=== PATIENT | male | born 1970 | race African-American/Black ===

== ENCOUNTER 2019-03-29 22:34 | Emergency (ER) | payer MEDICAID ==
[~2019-03-29] VITALS: Ht 185.4 cm; Wt 129.3 kg
[2019-03-29] MEDS ORDERED: NKM (22:45)
--- NOTE | 2019-03-29 22:46 | NUR ---
ED Nurse Note: Pt ambulated to ED from home c/o / L sided flank pain since 1699 today, denies SOB or chest pain. Pt is A&Ox4. VSS
[2019-03-29 22:50] VITALS: BP 136/85
[2019-03-29] MEDS ORDERED: Methocarbamol 750mg tab ORAL ONE (23:15)
[2019-03-29] MEDS ORDERED: IBUPROFEN600 MG ORAL (23:43)
[2019-03-29] MEDS ORDERED: LIDODERM700 M1 TOPIC (23:43)
[2019-03-29] MEDS ORDERED: ROBAXIN-750750 MG PO (23:43)
[2019-03-29 23:45] VITALS: BP 136/85
--- NOTE | 2019-03-29 23:45 | NUR ---
ER DISCHARGE NOTE: Patient is cleared to be discharged per ERMD, pt is aox4, on room air, with stable vital signs. pt was given dc and prescription instructions, pt was able to verbalize understanding, pt id band removed. pt is able to ambulate with steady gait. pt took all belongings.
--- NOTE | 2019-03-30 00:42 | Emergency Room Report ---
History of Present Illness General Chief Complaint: Back Pain-No Injury Source: Patient Present Illness HPI 48-year-old male presents ED for evaluation. Patient complaining of left lower back pain which started this morning. Woke up with the pain. Pain is throbbing , 7 out of 10, nonradiating. Denies nausea or vomiting. Denies dysuria or hematuria. Denies bowel or bladder incontinence. Denies any leg or motor weakness. No other aggravating relieving factors. Denies any other associated symptoms Allergies: Coded Allergies: No Known Allergies (Unverified , 03/29/19) Patient History Past Medical History: HTN Past Surgical History: none Pertinent Family History: none Social History: Denies: smoking, alcohol use, drug use Immunizations: UTD Reviewed Nursing Documentation: PMH: Agreed; PSxH: Agreed Nursing Documentation-PMH Past Medical History: No History, Except For Hx Hypertension: Yes Review of Systems All Other Systems: negative except mentioned in HPI Physical Exam Vital Signs Date Time Temp Pulse Resp B/P (MAP) Pulse Ox O2 Delivery O2 Flow Rate FiO2 03/29/19 22:41 98.2 84 14 136/85 (102) 96 Room Air Sp02 EP Interpretation: reviewed, normal General Appearance: no apparent distress, alert, GCS 15, non-toxic, obese Head: normocephalic Eyes: bilateral eye normal inspection, bilateral eye PERRL ENT: normal ENT inspection Neck: normal inspection Respiratory: normal inspection Cardiovascular #1: normal inspection, normal peripheral pulses Gastrointestinal: normal bowel sounds, non tender, soft, non-distended, no guarding, no rebound Rectal: deferred Genitourinary: no CVA tenderness Musculoskeletal: tender - paraspinal lumbar tenderness Neurologic: alert, oriented x3, responsive, motor strength/tone normal, sensory intact, speech normal Psychiatric: normal inspection Skin: normal color Lymphatic: normal inspection Medical Decision Making Diagnostic Impression: Primary Impression: Back pain Qualified Codes: M54.5 - Low back pain ER Course Hospital Course 48-year-old male presents ED complaining of lower back pain. No evidence of trauma Differential diagnoses include: pyelonephritis, kidney stone, muscle strain, Lspine fracture Clinical course Patient placed on stretcher. After initial history physical exam reveals obese male in no acute distress. There is no flank pain. There is no vertebral body tenderness. There is paraspinal lumbar tenderness on the lower back. Pain is muscular. Discussed findings with patient. No imaging indicated at this time. Patient agrees with plan. Given pain meds here. Will discharge with medication. Safe for discharge for close outpatient follow-up. States he has a PMD Diagnosis - back pain Stable and discharged to home with prescription for motrin, robaxin, lidoderm. Followup with PMD. Return to ED if symptoms recur or worsen Last Vital Signs Date Time Temp Pulse Resp B/P (MAP) Pulse Ox O2 Delivery O2 Flow Rate FiO2 03/29/19 23:46 98.2 03/29/19 23:45 85 14 136/85 96 Room Air Status: improved Disposition: HOME, SELF-CARE Condition: Stable Scripts Lidocaine (Lidoderm) 1 Each Adh..patch 1 PATCH TOPIC DAILY, #7 PATCH 0 Refills Patch(es) may remain in place for up to 12 hours in any 24-hour period. Prov: Kt Baron MD 03/29/19 Methocarbamol* (ROBAXIN-750*) 750 Mg Tablet 750 MG PO TID, #21 TAB 0 Refills Prov: Kt Baron MD 03/29/19 Ibuprofen* (MOTRIN*) 600 Mg Tablet 600 MG ORAL Q8H PRN for For Pain, #30 TAB 0 Refills Prov: Kt Baron MD 03/29/19 Referrals: [facility]ERR[facility] (PCP) Patient Instructions: Back Pain, Adult Kt Baron MD Mar 30, 2019 00:42
== END 2019-03-29 23:45 | disposition home or self-care (01) ==
LOC: EMR 22:58
DX: M54.5 Low back pain (principal); I10 Essential (primary) hypertension; E66.9 Obesity, unspecified; Z68.37 Body mass index [BMI] 37.0-37.9, adult
CPT/HCPCS: 99283

== ENCOUNTER 2019-11-08 13:50 | Emergency (ER) | payer MEDICAID ==
[~2019-11-08] VITALS: Ht 185.4 cm; Wt 129.3 kg
[~2019-11-08 13:50] MED LIST: AMLODIPINE BESY10 MG ORAL; IBUPROFEN600 MG ORAL; LIDODERM700 M1 TOPIC; METFORMIN HCL500 M1 ORAL; NAPROXEN250 M1 PO; NKM; ROBAXIN-750750 MG PO; TRIAMTERENE-HC1 EAC5 ORAL
--- NOTE | 2019-11-08 14:00 | NUR ---
ED Nurse Note: patient walked into ED from work c/o left sided chest pain 03/24, 1 hour prior to arrival to Ed. patient changed to a hospital gown. 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 patient reports the pain is aggravated by moving. patient is alert awake x4 ambulatory, breathing unlabored and even, speaking in full sentences.
[2019-11-08 14:18] VITALS: BP 127/79
--- NOTE | 2019-11-08 14:22 | NUR ---
ED Nurse Note: xray at bedside
[2019-11-08 14:30] LABS: BASOPHILS % (AUTO) 7.3 % (0.0-2.0); EOSINOPHILS % (AUTO) 1.5 % (0.0-3.0); HEMATOCRIT 39.9 % (42.0-52.0); HEMOGLOBIN 13.3 G/DL (14.2-18.0); LYMPHOCYTES % (AUTO) 40.6 % (20.0-45.0); MEAN CORPUSCULAR VOLUME 87 FL (80-99); MONOCYTES % (AUTO) 10.1 % (1.0-10.0); NEUTROPHILS % (AUTO) 40.4 % (45.0-75.0); PLATELET COUNT 164 K/UL (150-450); RED BLOOD COUNT 4.57 M/UL (4.70-6.10); RED CELL DISTRIBUTION WIDTH 13.5 % (11.6-14.8); WHITE BLOOD COUNT 7.4 K/UL (4.8-10.8)
[2019-11-08] MEDS ORDERED: Nitroglycerin Subl 0.4mg tab SL ONE (14:30)
[2019-11-08 14:45] LABS: ANION GAP 12 mmol/L (5-15); BLOOD UREA NITROGEN 11 mg/dL (7-18); CALCIUM 9.4 MG/DL (8.5-10.1); CARBON DIOXIDE 27 MMOL/L (21-32); CHLORIDE 104 MMOL/L (98-107); CREATININE 0.9 MG/DL (0.55-1.30); POTASSIUM 4.5 MMOL/L (3.5-5.1); SODIUM 143 MMOL/L (136-145)
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
[2019-11-08 15:03] LABS: ALANINE AMINOTRANSFERASE 26 U/L (12-78); ALBUMIN 3.8 G/DL (3.4-5.0); ALBUMIN/GLOBULIN RATIO 1.1 (1.0-2.7); ALKALINE PHOSPHATASE 47 U/L (46-116); ASPARTATE AMINO TRANSFERASE 17 U/L (15-37); BILIRUBIN,TOTAL 0.3 MG/DL (0.2-1.0); CKMB 2.1 NG/ML (0.0-3.6)
--- NOTE | 2019-11-08 15:10 | NUR ---
ED Nurse Note: IV, ID band removed. VSS. Patient denies CP at this time.
[2019-11-08 15:14] VITALS: BP 119/75
--- NOTE | 2019-11-08 15:15 | NUR ---
AMA: SEE AMA FORM.
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
== END 2019-11-08 15:15 | disposition left against medical advice (07) ==
LOC: EMR 15:12
DX: R07.9 Chest pain, unspecified (principal); I51.7 Cardiomegaly; I10 Essential (primary) hypertension; E66.9 Obesity, unspecified; Z68.37 Body mass index [BMI] 37.0-37.9, adult
CPT/HCPCS: 36415; 71045; 80053; 80307; 82553; 83880; 84484; 85025; 93005; 96360; J7030; Z7502; 99284

== ENCOUNTER 2020-03-07 22:51 | Emergency (ER) | payer MEDICAID ==
[~2020-03-07] VITALS: Ht 185.4 cm; Wt 133.8 kg
--- NOTE | 2020-03-07 23:17 | Emergency Room Report ---
History of Present Illness General Chief Complaint: Lower Extremity Injury Source: Patient Present Illness HPI The patient presents with 3 weeks of left thigh pain. This started during a basketball game. The pain has persisted. It is worse when he is walking but is better when he squats. It is most severe in the posterior thigh although it radiates towards his hip and back. He had taken Motrin 800 mg with some relief. Last dose 2 hours ago. No edema or calf pain. No numbness. No hip trauma. He rates the pain 9/10 at this time. Is worse when he is ambulating. Is better when he sitting down. It is slightly better after taking Motrin. No fevers, chills, sore throat, chest pain, palpitations, nausea, vomiting, diarrhea, dysuria, abdominal pain, shortness of breath, rashes, depression, anxiety, visual changes, dizziness, headache. Allergies: Coded Allergies: No Known Allergies (Unverified , 03/29/19) COVID-19 Screening Contact w/high risk pt: No Recent Travel to affected area: No Experienced COVID-19 symptoms?: No COVID-19 Testing performed [employer]: No Patient History Past Medical History: see triage record Social History: Reports: smoking Social History Narrative at home, played football in youth Reviewed Nursing Documentation: PMH: Agreed; PSxH: Agreed Nursing Documentation-PMH Past Medical History: No Stated History Hx Cardiac Problems: No Hx Hypertension: Yes Hx Pacemaker: No Hx Asthma: No Hx COPD: No Hx Diabetes: Yes - prediabetic Hx Cancer: No Hx Gastrointestinal Problems: No Hx Dialysis: No History Of Psychiatric Problem: No Hx Neurological Problems: No Hx Cerebrovascular Accident: No Review of Systems Constitutional: Denies: fever Respiratory: Reports: see HPI; Denies: SCHWARTZ Musculoskeletal: Reports: see HPI Skin: Denies: rash Neurological: Reports: see HPI Hematologic/Lymphatic: Reports: see HPI All Other Systems: negative except mentioned in HPI Physical Exam Vital Signs Date Time Temp Pulse Resp B/P (MAP) Pulse Ox O2 Delivery O2 Flow Rate FiO2 03/07/20 22:55 97.7 91 20 152/81 (104) 94 Room Air Sp02 EP Interpretation: reviewed, abnormal - Reviewed by me and slightly low General Appearance: well appearing, no apparent distress, GCS 15 Head: normocephalic Eyes: bilateral eye normal inspection, bilateral eye PERRL, bilateral eye EOMI ENT: moist mucus membranes Neck: supple Respiratory: lungs clear, normal breath sounds Cardiovascular #1: regular rate, rhythm, no edema Cardiovascular #2: 2+ radial (R) Gastrointestinal: normal inspection, non-distended Genitourinary: no CVA tenderness Musculoskeletal: no calf tenderness, pelvis stable, moves extm spontaneously, tender - Mainly L posterior thigh and slighly muscles of lower back. Hip palpation not tender Neurologic: motor strength/tone normal, DTRs symmetric, distal neuro normal, sensory intact Psychiatric: mood/affect normal Reflexes: 2+ knee (R), 2+ knee (L), 2+ ankle (R), 2+ ankle (L) Skin: no rash, warm/dry, other - old scar L scalp Medical Decision Making Diagnostic Impression: Primary Impression: Muscle strain of thigh Qualified Codes: S76.912A - Strain of unspecified muscles, fascia and tendons at thigh level, left thigh, initial encounter ER Course Patient presents with left posterior thigh pain which began while playing basketball 3 weeks ago. DDx: muscle strain, hip sprain, back sprain with some sciatica, DJD amongst others. Based on history and physical exam, muscle strain is most likely. At this time imaging studies are not indicated. No red flag signs or symptoms. As he took ibuprofen recently, he will be given a dose of Tylenol in the ED. Discussed assessment with patient. Discussed treatment plan. No medical emergency at this time. Patient stable for outpatient observation and treatment. Last Vital Signs Date Time Temp Pulse Resp B/P (MAP) Pulse Ox O2 Delivery O2 Flow Rate FiO2 03/07/20 23:28 97.7 20 152/81 94 Room Air 03/07/20 22:55 91 Status: improved Disposition: HOME, SELF-CARE Condition: Stable Scripts Ibuprofen* (MOTRIN*) 600 Mg Tablet 600 MG ORAL Q6H PRN for For Pain, #30 TAB 0 Refills Prov: Rodri Chance MD 03/07/20 Rodri Chance MD Mar 07, 2020 23:17
[2020-03-07] MEDS ORDERED: IBUPROFEN600 M1 ORAL (23:19)
[2020-03-07 23:28] VITALS: BP 152/81
[2020-03-07] MEDS ORDERED: Acetaminophen 500mg (ES) tab ORAL ONE (23:30)
== END 2020-03-07 23:28 | disposition home or self-care (01) ==
LOC: EMR 23:25
DX: S76.912A Strain of unspecified muscles, fascia and tendons at thigh level, left thigh, initial encounter (principal); Y93.67 Activity, basketball; F17.200 Nicotine dependence, unspecified, uncomplicated; I10 Essential (primary) hypertension; R73.03 Prediabetes; L90.5 Scar conditions and fibrosis of skin; Z87.891 Personal history of nicotine dependence
CPT/HCPCS: 99281

== ENCOUNTER 2020-08-17 13:50 | Emergency (ER) | payer MEDICAID ==
[~2020-08-17] VITALS: Ht 185.4 cm; Wt 134.7 kg
[~2020-08-17 13:50] MED LIST changes: +IBUPROFEN600 M1 ORAL
[2020-08-17] MEDS ORDERED: Ketorolac 30mg Inj IM ONE (14:15)
[2020-08-17] MEDS ORDERED: Methocarbamol 750mg tab ORAL ONE (14:15)
--- NOTE | 2020-08-17 14:15 | NUR ---
Pt walked in to ED c/o pain, swelling, bump to right elbow S/P slip and fall last night. Pt also c/o lower back pain. Denies head trauma. vss, nad noted.
[2020-08-17 14:17] VITALS: BP 143/90
--- NOTE | 2020-08-17 14:20 | NUR ---
ED Nurse Note: patient off floor for ct scan.
--- NOTE | 2020-08-17 14:30 | NUR ---
ED Nurse Note: patient back on floor from ct scan.
--- NOTE | 2020-08-17 14:47 | NUR ---
ED Nurse Note: xray at bedside.
--- NOTE | 2020-08-17 14:48 | Emergency Room Report ---
History of Present Illness General Chief Complaint: Multiple Trauma/Fall Source: Patient Present Illness HPI 49-year-old male with no symptom past medical history here complaining of low back pain and right elbow pain status post fall that occurred last night. Patient reports that he was trying to get out of the shower and he slipped landed on his lower back and hit his right elbow to the side wall. Obvious contusion and effusion of the right elbow noted however patient has full range of motion. Denies any tingling numbness. Denies any saddle paresthesia, urinary bowel incontinence. Patient is capable of standing, sitting, bending and walking. Denies head trauma, loss of consciousness. Denies bleeding, denies taking any blood thinners. Has taken Motrin for pain relief with minimal relief. Patient is neurovascularly intact. Allergies: Coded Allergies: No Known Allergies (Unverified , 03/29/19) COVID-19 Screening COVID-19 risk:Contact w/high r: No COVID-19 risk:Travel to affect: No Has patient experienced martinez: No COVID-19 Testing performed LANG[employer] TE[employer]ER: No - 2 weeks COVID-19 Screening: Negative COVID-19 COVID-19 Testing Source: clinic Patient History Past Medical History: see triage record Past Surgical History: none Pertinent Family History: none Reviewed Nursing Documentation: PMH: Agreed; PSxH: Agreed Nursing Documentation-PMH Hx Cardiac Problems: No Hx Hypertension: Yes Hx Pacemaker: No Hx Asthma: No Hx COPD: No Hx Diabetes: Yes - prediabetic Hx Cancer: No Hx Gastrointestinal Problems: No Hx Dialysis: No Hx Neurological Problems: No Hx Cerebrovascular Accident: No Review of Systems All Other Systems: negative except mentioned in HPI Physical Exam Vital Signs Date Time Temp Pulse Resp B/P (MAP) Pulse Ox O2 Delivery O2 Flow Rate FiO2 08/17/20 13:53 98.4 98 19 143/90 (107) 98 Room Air Sp02 EP Interpretation: reviewed, normal General Appearance: normal inspection, alert, no apparent distress, GCS 15 Head: normocephalic, atraumatic Eyes: normal eye exam, PERRL, EOMI, lids + conjunctiva normal, no hyphema, no racoon eyes ENT: normal ENT inspection, TMs + canals normal, oropharynx normal, no azar signs Neck: trach midline, no bony tend, full range of motion without pain Respiratory: effort normal, no retractions, clear to auscultation, chest symmetrical, palpation of chest normal, speaking in full sentences Cardiovascular: regular rate, rhythm, no JVD Cardiovascular #2: 2+ radial (R), 2+ radial (L), 2+ dorsalis pedis (R), 2+ dorsalis pedis (L) Musculoskeletal: gait & station normal, normal ROM, non-tender, back normal, other - Swelling right elbow Skin: no rash Lymphatic: normal inspection Neurologic: oriented x3, sensory intact, motor strength/tone normal, normal speech Psychiatric: normal inspection, memory normal, mood normal, no suicidal/homicidal ideation Procedures Splinting Splinting : Consent: Verbal Location: Right elbow Pre-Made Type: JILL wrap Pre-Proc Neuro Vasc Exam: normal Post-Proc Neuro Vasc Exam: normal Patient Tolerated: Well Complications: None Medical Decision Making PA Attestation All my diagnosis and treatment plans were reviewed ad discussed with my supervising physician Dr. Easley Diagnostic Impression: Primary Impression: Lumbar sprain Additional Impressions: Diverticulitis Elbow contusion ER Course 49-year-old male with no symptom past medical history here complaining of low back pain and right elbow pain status post fall that occurred last night. Patient reports that he was trying to get out of the shower and he slipped landed on his lower back and hit his right elbow to the side wall. Obvious contusion and effusion of the right elbow noted however patient has full range of motion. Denies any tingling numbness. Denies any saddle paresthesia, urinary bowel incontinence. Patient is capable of standing, sitting, bending and walking. Denies head trauma, loss of consciousness. Denies bleeding, denies taking any blood thinners. Has taken Motrin for pain relief with minimal relief. Patient is neurovascularly intact. Ddx considered but are not limited to: Lumbar spine sprain, strain, fracture, contusion, neuropathy, elbow fracture versus sprain versus contusion Vital signs: are WNL, pt. is afebrile H&PE are most consistent with: Right elbow contusion, lumbar spine sprain, incidental finding of diverticulitis chronic ORDERS: Lumbar spine CT contrast, right elbow x-ray, right shoulder x-ray, Robaxin, Motrin, lidocaine patch ER intervention: Toradol IM, Robaxin p.o., lidocaine patch DISCHARGE: At this time pt. is stable for d/c to home. Will provide printed patient care instructions, and any necessary prescriptions. Care plan and follow up instructions have been discussed with the patient prior to discharge. Advised patient to follow primary care provider orthopedist, if worsening symptom return to the emergency room. Also the primary doctor regarding and increase fiber intake. Also discussed chronic lumbar stenosis and disc bulging which is not related to the recent accident. Other X-Ray Diagnostic Results Other X-Ray Diagnostic Results #1: X-Ray ordered: Right elbow # of Views/Limited Vs Complete: 3 View Indication: Pain EP Interpretation: Yes Interpretation: no dislocation, no fractures, other - Calcification of the right elbow Impression: No acute disease Electronically Signed by: Leonila Vázquez PA-C Other X-Ray Diagnostic Results #2: X-Ray ordered: Right shoulder # of Views/Limited Vs Complete: 3 View Indication: Pain EP Interpretation: Yes Interpretation: no dislocation, no soft tissue swelling, no fractures Impression: No acute disease Electronically Signed by: Leonila Vázquez PA-C CT/MRI/US Diagnostic Results CT/MRI/US Diagnostic Results #1: Imaging Test Ordered: CT L-spine Impression Comparison: none Findings: Normal bony alignment. Vertebral body heights are preserved. The disc spaces are preserved. No acute fracture. No dislocation. At L2-3, there is mild circumferential annular bulge which results in borderline narrowing spinal canal. The neural foramina are preserved. At L3-4, there is circumferential annular bulge which in combination with short pedicles results in mild narrowing of the spinal canal. The neural foramina are preserved. At L4-5, there is circumferential annular bulge. This, in combination with short pedicles, results in mild narrowing of the spinal canal. Facet hypertrophy results in mild narrowing of bilateral neural foramina. Posterior to L5, the bony spinal canal is congenitally mildly narrowed. At L5-S1, circumferential annular bulge as well as developmental narrowing spinal canal and a posterior osteophyte results in mild narrowing of the spinal canal. There is mild narrowing of bilateral neural foramina due to facet hypertrophy. Impression: No acute bony trauma Degenerative changes, as describedNo acute bony trauma CT/MRI/US Diagnostic Results #2: Imaging Test Ordered: CT pelvis Impression Comparison: none Findings: No acute fracture. No dislocation. The joint spaces are preserved. No significant soft tissue contusion demonstrated. There are small bilateral inguinal hernias which contain only fat. There is evidence of a prior midline surgical incision. The pelvic viscera are unremarkable, except for colonic diverticula. Impression: No acute bony trauma Colonic diverticulosis incidentally noted Small bilateral inguinal hernias that contain only fat incidentally noted Evidence of prior abdominal surgery Last Vital Signs Date Time Temp Pulse Resp B/P (MAP) Pulse Ox O2 Delivery O2 Flow Rate FiO2 08/17/20 14:17 98 19 Room Air 08/17/20 14:17 98.4 143/90 98 Disposition: HOME, SELF-CARE Condition: Stable Scripts Ibuprofen (Ibu) 800 Mg Tablet 800 MG PO TID, #30 TAB Prov: Leonila Albarado 08/17/20 Lidocaine Patch* (Lidoderm Patch*) 1 Each Adh..patch 1 PATCH TOPIC DAILY, #30 PATCH Patch(es) may remain in place for up to 12 hours in any 24-hour period. Prov: Leonila Albarado 08/17/20 Methocarbamol* (ROBAXIN-500*) 500 Mg Tablet 500 MG ORAL TID PRN for For Pain, #15 TAB 0 Refills Prov: Leonila Albarado 08/17/20 Referrals: [facility]ERR[facility] (PCP) Patient Instructions: Elbow Contusion, [id number], Lumbosacral Strain Additional Instructions: Take medication as directed, follow-up with your primary care provider, if worsening symptoms return to the emergency Leonila Albarado Aug 17, 2020 14:48
--- NOTE | 2020-08-17 15:02 | Diagnostic Imaging Report ---
Indication: Trauma, pain Technique: Noncontrast spiral acquisitions obtained through the pelvis. Multiplanar reconstructions generated. Total dose length product 968 mGycm. CTDIvol(s) 19 mGy. Dose reduction achieved using automated exposure control Comparison: none Findings: No acute fracture. No dislocation. The joint spaces are preserved. No significant soft tissue contusion demonstrated. There are small bilateral inguinal hernias which contain only fat. There is evidence of a prior midline surgical incision. The pelvic viscera are unremarkable, except for colonic diverticula. Impression: No acute bony trauma Colonic diverticulosis incidentally noted Small bilateral inguinal hernias that contain only fat incidentally noted Evidence of prior abdominal surgery The CT scanner at [facility] is accredited by the [employer] and the scans are performed using protocols designed to limit radiation exposure to as low as reasonably achievable to attain images of sufficient resolution adequate for diagnostic evaluation.
--- NOTE | 2020-08-17 15:07 | Diagnostic Imaging Report ---
Indications: Pain, trauma Technique: Spiral acquisitions obtained through the lumbar spine. Multiplanar reconstructions were generated. No IV contrast utilized. Total dose length product 968 mGycm. CTDIvol(s) 19 mGy. Dose reduction achieved using automated exposure control Comparison: none Findings: Normal bony alignment. Vertebral body heights are preserved. The disc spaces are preserved. No acute fracture. No dislocation. At L2-3, there is mild circumferential annular bulge which results in borderline narrowing spinal canal. The neural foramina are preserved. At L3-4, there is circumferential annular bulge which in combination with short pedicles results in mild narrowing of the spinal canal. The neural foramina are preserved. At L4-5, there is circumferential annular bulge. This, in combination with short pedicles, results in mild narrowing of the spinal canal. Facet hypertrophy results in mild narrowing of bilateral neural foramina. Posterior to L5, the bony spinal canal is congenitally mildly narrowed. At L5-S1, circumferential annular bulge as well as developmental narrowing spinal canal and a posterior osteophyte results in mild narrowing of the spinal canal. There is mild narrowing of bilateral neural foramina due to facet hypertrophy. Impression: No acute bony trauma Degenerative changes, as described The CT scanner at [facility] is accredited by the [employer] and the scans are performed using protocols designed to limit radiation exposure to as low as reasonably achievable to attain images of sufficient resolution adequate for diagnostic evaluation.
[2020-08-17] MEDS ORDERED: ROBAXIN-500MG ORAL (15:29)
[2020-08-17] MEDS ORDERED: LIDODERM700 M1 TOPIC (15:29)
[2020-08-17] MEDS ORDERED: IBU800 MG PO (15:29)
[2020-08-17 15:31] VITALS: BP 132/66
--- NOTE | 2020-08-17 15:33 | NUR ---
ED Nurse Note: Pt cleared by health care Provider for discharge. DC instructions/prescription was given and explained to pt and verbalized understanding of teachings. All medical deviecs such as ID band removed. Pt is AAO x4, ambulatory and left with all personal belongings. vss
--- NOTE | 2020-08-17 16:31 | Diagnostic Imaging Report ---
Indication: Pain in right shoulder, trauma Technique: 3 views of the right shoulder Comparison: none Findings: No acute fracture. No dislocation. The joint spaces are preserved Impression: Negative
--- NOTE | 2020-08-17 16:32 | Diagnostic Imaging Report ---
Indications:Pain in right elbow, status post trauma Technique: Three or 4 views of the right elbow Comparison: None Findings: Soft tissue swelling overlies the olecranon. No joint effusion. No acute fracture. No dislocation. Impression: No acute bony trauma
== END 2020-08-17 15:38 | disposition home or self-care (01) ==
LOC: EMR 14:11
DX: S33.5XXA Sprain of ligaments of lumbar spine, initial encounter (principal); S50.01XA Contusion of right elbow, initial encounter; K57.92 Diverticulitis of intestine, part unspecified, without perforation or abscess without bleeding; I10 Essential (primary) hypertension; R73.03 Prediabetes; W18.2XXA Fall in (into) shower or empty bathtub, initial encounter; Y93.E1 Activity, personal bathing and showering; Y92.012 Bathroom of single-family (private) house as the place of occurrence of the external cause
CPT/HCPCS: 72131; 72192; 73030; 73080; 96372; J1885; Z7502; 99284